=== PATIENT | female | born 1975 | race Two or more races ===

== ENCOUNTER 2022-12-03 10:58 | Outpatient (CLI) | payer OTHER ==
--- NOTE | 2022-12-03 11:49 | SLEEP CARE CONSULTATION ---
Information from patient questionnaire entered by Lenny Gan. I have reviewed and concur with the information entered by Lenny Gan. This document represents the service I personally performed and the decisions made by me, Cammy Maradiaga ARNP. History of Present Illness Service Date and Time: 12/03/2022 1058 Reason for Visit: New patient Chief Complaint: reports: Insomnia, Unrefreshed sleep, Snoring, Excessive daytime sleepiness, Fatigue, Frequent awakenings at night Date of Onset: 6+YRS Usual bedtime: 10-11PM Time it takes to fall asleep: 60MIN Snores at night: Yes Observed to quit breathing while asleep: No Sleeps alone due to snoring: No Number of times waking at night: 4 Reasons for waking at night: reports: Snoring, Pain, Other (PAIN, UNKNOWN ). denies: Choking, Gasping for air Toss, Turn, or Twitch while sleeping: Yes Recalls having dreams: Yes (sometimes) Usually gets out of bed at: 730AM Feels refreshed in the morning: No Morning headache: No Sleepy or fatigued during the day: Yes Ever fallen asleep while driving: No Takes day naps: Yes (maybe on weekends) Dreams during day naps: No Prior sleep studies: No Additional HPI information: I had the pleasure of seeing BEATRIZ LOZOYA today regarding the possibility of her having a sleep disorder. Her current complaints are insomnia, unrefreshed sleep, snoring, excessive daytime sleepiness, fatigue and frequent night awakenings. She has been snoring for a long time and her (who is on a CPAP) has been encouraging her to get a sleep study. She states it takes an hour to fall asleep initially. She states she will wake up 1-2 times in the middle of night and it takes her about 30 minutes or more to go back to sleep. She is not sure what wakes her up most of the time. - Parasomnia Symptoms Ever been unable to move upon waking from sleep: No Walks in sleep: No Talks in sleep: Yes (sometimes, per ) Ever acted out dreams in sleep: No Ever felt weak in the knees when startled or emotional: Yes (has not fallen to ground) Bothered by creepy, crawly, restless sensations in legs: Yes (at night, before bed) Problems with memory or concentration: No Subjective Initial [place] Sleepiness Scale score: 9 (12/02/22) Past Medical History Past Medical History: reports: Arthritis, Anemia, Anxiety, Depression, GERD, Other (Csection 2002) Social History The patient's occupation is a [employer]. Patient is and lives in [place]. Have you smoked in the past 12 months: No Alcohol use: No Caffeine use: Yes Caffeine amount and frequency: 1 DAILY Family History Family history of sleep disordered breathing: Yes Family Hx Sleep Apnea: Mother: Snoring, Father: Sleep apnea - Treated Allergies and Home Medications Known drug allergies: No Drug allergies reviewed: Yes (NKDA) Home medication list reviewed: Yes Allergy and home medication list: Medications: Fluoxetine 20 mg, daily Pantoprazole 40 mg, daily Review of Systems Cardiovascular: denies: high blood pressure Gastrointestinal: reports: heartburn Neurological: denies: headaches Psychiatric: reports: anxiety, depression Ear/Nose/Throat: reports: nasal congestion, sinus problems, wisdom teeth removed. denies: tonsillectomy Musculoskeletal: reports: joint pain, neck pain, back pain Physical Exam Vital signs obtained and entered by: LENNY Singh MA Blood Pressure: 156/100 (LEFT ARM; pt feeling nervous) Cuff size: regular Heart Rate: 97 O2 Saturation: 99 Height: 5 ft Weight: 227 lb 3.2 oz Body Mass Index: 44.4 BMI Classification: Morbidly Obese Neck circumference: 16.25 Nostrils: patent to airflow Mouth and throat: narrow oropharynx Soft palate: long Hard palate: normal Uvula: normal Uvula visualization: 0% Mallampati Class IV Tongue: normal in size Tonsils: small Neck: normal w/o lymphadenopathy or thyromegaly Heart: regular rate and rhythm Lungs: clear bilaterally Impression and Plan 1. Suspected Obstructive Sleep Apnea-Hypopnea Syndrome, as suggested by a history of loud and irregular snoring, frequent awakening during the night, unrefreshed sleep, and excessive daytime sleepiness. Narrow oropharynx and obesity are common predisposing factors for obstructive sleep apnea-hypopnea syndrome. I recommend proceeding to polysomnography to confirm the diagnosis and to assess severity. If the patient has significant sleep disordered breathing, a manual CPAP titration study will also be performed to find the optimal treatment pressure. I informed the patient of what the sleep studies involve and after some discussion, obtained agreement to proceed. The pathophysiology of obstructive sleep apnea-hypopnea syndrome was discussed with the patient and health risks of cardiovascular and cerebrovascular disease if not treated. Risks of drowsy driving discussed in detail and patient advised to avoid long distance driving and to stock puller at the first sign of drowsiness. Patient agreed to plan. * Schedule polysomnography * Avoid long distance driving or driving when feeling sleepy. * Avoid alcohol, sedative and muscle relaxant around bedtime. * Attempt to lose weight. * Review instructions provided by trained office staff on how to prepare for the sleep study. * Return for follow-up after sleep study completed. Counseling Topics: Weight loss health impact Visit Type: In Office Time Spent with Patient (minutes): 30 Provider Statement: I spent 100% of the Face to Face Visit with the patient with greater than 50% spent counseling the patient and coordination of care.
[2022-12-03 11:50] VITALS: BP 156/100
== END 2022-12-03 10:59 | disposition home or self-care (01) ==
LOC: SC 10:58
PROVIDERS: ATTEND Nurse Practitioner Family
DX: R06.83 Snoring (principal); G47.8 Other sleep disorders; G47.10 Hypersomnia, unspecified; R53.83 Other fatigue; F32.A Depression, unspecified; E66.01 Morbid (severe) obesity due to excess calories; Z68.41 Body mass index [BMI] 40.0-44.9, adult
CPT/HCPCS: 99203; 99212

== ENCOUNTER 2023-01-11 19:32 | Outpatient (CLI) | payer OTHER | END 2023-01-11 19:33 | disposition home or self-care (01) | LOC: SC 19:32 | PROVIDERS: ATTEND Nurse Practitioner Family | DX: G47.33 Obstructive sleep apnea (adult) (pediatric) (principal); Z68.41 Body mass index [BMI] 40.0-44.9, adult | CPT/HCPCS: 95810 ==

== ENCOUNTER 2023-02-17 08:25 | Outpatient (CLI) | payer OTHER ==
[2023-02-17 08:55] VITALS: BP 126/82
--- NOTE | 2023-02-17 08:55 | SLEEP CARE CONSULTATION ---
Information from patient questionnaire entered by Hannah Gan. I have reviewed and concur with the information entered by Hannah Gan. This document represents the service I personally performed and the decisions made by , Cammy Maradiaga ARNP. History of Present Illness Service Date and Time: 02/17/2023824 Initial [place] Sleepiness Scale score: 9 (12/02/22) Current [place] Sleepiness Scale score: 10 (02/17/23) Additional HPI information: BEATRIZ LOZOYA returns for follow up and results of the recently performed polysomnography. I explained the pathophysiology behind obstructive sleep apnea. We then spent quite a bit of time discussing different treatment options. For mild obstructive sleep apnea, surgery and oral appliance are alternatives to nasal CPAP therapy but in moderate or severe cases, nasal CPAP is the most effective and reliable treatment. Because apnea is primarily in supine position, then positional management therapy could be effective. Methods discussed such as positioning with pillows to prevent supine sleep. I reviewed the impact of weight changes on sleep apnea and strongly recommended losing weight. After some discussion, the patient opted to go with the nasal CPAP therapy. Nasal autoCPAP set at 4-15 cmH20 will be ordered with rationale explained. A manual titration study will be ordered if unable to find optimal pressure with office adjustments. I explained how CPAP machine works and what to expect when using the machine. Using CPAP every night in order to get used to it was emphasized. Patient advised to put CPAP mask on before getting into bed so as not to fall asleep without CPAP. To assist acclimation to CPAP use, it could also be used for a short time during day while reading or watching TV. The patient was instructed to call the CPAP supplier to discuss any mechanical problem that may occur. If the mask given is uncomfortable or is difficult to keep on through the night even with adjustment, contact the CPAP supplier as many will replace with another mask style if notified before 30 days. If snoring or perceives is not getting enough air or too much air from the machine, notify this office. Patient does not drink alcohol. Patient was cautioned about risks of drowsy driving until sleepiness symptoms resolve. Patient denies drowsy driving. Sleep Study - Results Type of Sleep Study: Polysomnography (COMPLETED 01/11/23) Prior sleep studies: No Polysomnography/Home Sleep Study results: IMPRESSION: The quality of the study is good. The patient had slightly reduced sleep efficiency due to a few awakenings during the night. The sleep architecture was abnormal for sleep fragmentation and reduced amount of time spent in slow wave sleep (N3). Respiratory monitoring showed moderate obstructive sleep apnea-hypopnea (AHI = 15.6) associated with frequent arousals, oxyhemoglobin desaturation and mild hypoxia (gladis oxygen saturation of 84%). The respiratory events occurred mainly during supine sleep (supine AHI = 25.1; non-supine = 12.72). Snore was moderate to loud in intensity. There was no significant periodic leg movement of sleep. Cardiac rhythm was normal sinus rhythm without significant arrhythmia. No abnormal behavior (parasomnia) observed during the night. Allergies and Home Medications Known drug allergies: No Drug allergies reviewed: Yes Home medication list reviewed: Yes (no changes) Allergy and home medication list: Allergies No Known Drug Allergies Allergy (Verified 02/16/23 09:19) Review of Systems Review of systems same as previous: Yes Physical Exam Vital signs obtained and entered by: HANNAH Singh MA Blood Pressure: 126/82 (LEFT ARM) Cuff size: regular Heart Rate: 89 O2 Saturation: 98 Height: 5 ft Weight: 226 lb 9.6 oz Body Mass Index: 44.2 BMI Classification: Morbidly Obese Impression and Plan r 1. Obstructive Sleep Apnea-Hypopnea Syndrome, moderate, with lowest oxygen saturation of 84%. Obviously this is the cause of the patients symptoms of unrefreshed sleep, and excessive daytime sleepiness. Positive pressure therapy could benefit anxiety, depression and gastric reflux. As mentioned above, the patient will be started on nasal autoCPAP therapy with pressure set at 4-15 cmH2 O. Compliance guidelines also reviewed. A copy of compliance guidelines will be given for reference at check out. Because the apnea is more severe supine, I instructed to avoid sleeping supine using pillow positioning until able to start CPAP use. 2. Hypoxemia, mild, with a gladis oxygen saturation of 84% and 0.2 minutes spent under 90%. Her baseline oxygen saturation was normal with an average oxygen saturation of 95%. * Nasal auto CPAP therapy, pressure at 4-15 cm H2O. * Attempt to lose weight. * Avoid alcohol consumption near bedtime. * Avoid supine sleep until using CPAP. * The patient is again cautioned about driving until sleepiness completely resolves. * Return one month after CPAP obtained. I will assess response to therapy and compliance at that time. Counseling Topics: Weight loss health impact Visit Type: In Office Time Spent with Patient (minutes): 12 Provider Statement: I spent 100% of the Face to Face Visit with the patient with greater than 50% spent counseling the patient and coordination of care.
== END 2023-02-17 08:26 | disposition home or self-care (01) ==
LOC: SC 08:25
PROVIDERS: ATTEND Nurse Practitioner Family
DX: G47.33 Obstructive sleep apnea (adult) (pediatric) (principal); R09.02 Hypoxemia; E66.01 Morbid (severe) obesity due to excess calories; Z68.41 Body mass index [BMI] 40.0-44.9, adult
CPT/HCPCS: 99212

== ENCOUNTER 2023-05-18 12:46 | Outpatient (CLI) | payer OTHER ==
--- NOTE | 2023-05-18 13:17 | Sleep Patient Instructions ---
Sleep Center Visit Summary - Patient Visit Information Reason for Visit: First Compliance visit for CPAP therapy - Patient Instructions Additional Instructions: You were here for follow up of CPAP therapy. You will be continued on CPAP therapy with pressure at 7-11 cmH2O. Please let us know if the pressure change is uncomfortable and we can make further adjustments of the pressure. We have also increased the ramp starting pressure to 5 cmH2O for comfort. You should follow up with sleep care in 1-2 months. You may contact us sooner for any questions or concerns. - Clinic Information Contact: [facility] [address] [place] [id number] [email or web address] T: [phone]
--- NOTE | 2023-05-18 13:23 | SLEEP CARE CONSULTATION ---
Information from patient questionnaire entered by Lenny Gan. I have reviewed and concur with the information entered by Lenny Gan. This document represents the service I personally performed and the decisions made by , Cammy Maradiaga ARNP. History of Present Illness Service Date and Time: 05/18/2023 1246 Previous diagnosis: Moderate, Obstructive Sleep Apnea-Hypopnea Syndrome AHI: 15.6 (in 12/2022) Reason for follow up: first compliance Equipment type: CPAP (RESMED 11, s/u 02/2023) Equipment obtained from: Other ([facility], got initial supplies) Mask style: Nasal Mask brand: Serv[employer] CloudOpt Backup mask available: No (will keep old mask when replaced) Last cushion change: 1.5 weeks Prior sleep studies: No Type of Sleep Study: Polysomnography (COMPLETED 01/11/23) HPI additional information: BEATRIZ LOZOYA was diagnosed to have moderate, AHI 15.6, obstructive sleep apnea-hypopnea syndrome and returned today for CPAP therapy first compliance follow-up. Sleep Study - Results Type of Sleep Study: Polysomnography (COMPLETED 01/11/23) Prior sleep studies: No CPAP Compliance Data - Data Reviewed with Patient Average duration of nightly device use: 7 hours 33 minutes Compliance rate %: 100 (30/30 days used) Current pressure setting (cmH2O): 4-15 (median 6.7, avg 9.5, max 11) Average residual AHI: 0.3 Central apnea: 0 Obstructive apnea: 0.1 Hypopnea: 0.1 Average large leak: 2.8 L/min Subjective Patient concerns: reports: air blowing in eyes, condensation in mask/hose. denies: aerophagia, mask discomfort, mask leak noise, nasal congestion, dry mouth, nose, throat, epistaxis Observed to snore while using device: No Current pressure setting perceived as: comfortable On therapy, patient: reports: sleeping better, awakening more refreshed, being more awake and alert during the day, more rested overall. denies: drowsiness while driving Initial [place] Sleepiness Scale score: 9 (12/02/22) Current [place] Sleepiness Scale score: 9 (122/70) Allergies and Home Medications Known drug allergies: No Drug allergies reviewed: Yes Home medication list reviewed: Yes (no changes) Allergy and home medication list: Allergies No Known Drug Allergies Allergy (Verified 05/16/23 10:54) Review of Systems Review of systems same as previous: Yes (no changes) Physical Exam Vital signs obtained and entered by: LENNY Singh MA Blood Pressure: 122/70 (LEFT ARM) Cuff size: regular Heart Rate: 102 O2 Saturation: 98 Height: 5 ft Weight: 230 lb 3.2 oz Body Mass Index: 44.9 BMI Classification: Morbidly Obese Impression and Plan 1. Obstructive Sleep Apnea-Hypopnea Syndrome, moderate, with good treatment compliance and good4 apnea control. On CPAP therapy, the patient has better sleep quality and is more rested overall. She states the pressure feels a little low at first and she wishes there was a bit more but otherwise the pressure is comfortable. I will increase her ramp starting pressure to 5 cmH2O for patient comfort. The patients pressure will be changed to autoCPAP 7-10 cmH20 to reflect pressures being used. Patient advised to contact me if pressure change is uncomfortable so that it can be adjusted. Goals for apnea control discussed. Patient's apnea severity and rationale for treatment to reduce apnea, improve sleep quality and reduce cardiovascular and cerebrovascular events was reviewed. I also reviewed the benefit of consistent device use of CPAP for gastric reflux, depression and anxiety. 2. Obesity, unspecified. Currently patients BMI is 44.9. Obesity increases the risk of apnea, CPAP pressure requirements and overall health risks especially cardiovascular and diabetes. Thus patient is advised to lose weight. * Increase ramp starting pressure to 5 cmH2O * Change auto CPAP pressure to 7-11 cmH2O * Notify me if snoring with mask or feeling that the pressure is too much or too little * Attempt to lose weight * Call this office if any problems using CPAP * Return for follow up in 1-2 months, or sooner if concerns arise Counseling Topics: Spare mask, Weight loss health impact Visit Type: In Office Time Spent with Patient (minutes): 24 Provider Statement: I spent 100% of the Face to Face Visit with the patient with greater than 50% spent counseling the patient and coordination of care.
[2023-05-18 13:27] VITALS: BP 122/70
== END 2023-05-18 12:47 | disposition home or self-care (01) ==
LOC: SC 12:46
PROVIDERS: ATTEND Nurse Practitioner Family
DX: G47.33 Obstructive sleep apnea (adult) (pediatric) (principal); E66.01 Morbid (severe) obesity due to excess calories; Z68.41 Body mass index [BMI] 40.0-44.9, adult
CPT/HCPCS: 99212; 99213

== ENCOUNTER 2023-07-01 09:05 | Outpatient (CLI) | payer OTHER ==
--- NOTE | 2023-07-01 08:59 | SLEEP CARE CONSULTATION ---
Information from patient questionnaire entered by Lenny Gan. I have reviewed and concur with the information entered by Lenny Gan. This document represents the service I personally performed and the decisions made by , Cammy Maradiaga ARNP. History of Present Illness Service Date and Time: 07/01/2023 0900 Previous diagnosis: Moderate, Obstructive Sleep Apnea-Hypopnea Syndrome AHI: 15.6 (in 2022) Reason for follow up: one month (F/U) Equipment type: CPAP (RESMED Airsense 11, s/u 02/2023) Equipment obtained from: Other ([facility], getting supplies) Mask style: Nasal Mask brand: Resmed (N20) Backup mask available: Yes (old mask) Last cushion change: last week Prior sleep studies: No Type of Sleep Study: Polysomnography (COMPLETED 01/11/23) HPI additional information: BEATRIZ LOZOYA was diagnosed to have moderate, AHI 15.6, obstructive sleep apnea-hypopnea syndrome and returns via video telehealth visit today for CPAP therapy one month follow-up. Sleep Study - Results Type of Sleep Study: Polysomnography (COMPLETED 01/11/23) Prior sleep studies: No CPAP Compliance Data - Data Reviewed with Patient Average duration of nightly device use: 7 HRS 17 MIN Compliance rate %: 97 (05/24/23-06/22/23; 30/30 days used) Current pressure setting (cmH2O): 7-10 Average residual AHI: 0.2 Central apnea: 0 Obstructive apnea: 0.1 Hypopnea: 0 Average large leak: 1.1 L/min Subjective Patient concerns: denies: aerophagia, mask discomfort, air blowing in eyes, mask leak noise, condensation in mask/hose, nasal congestion, dry mouth, nose, throat, epistaxis Observed to snore while using device: No Current pressure setting perceived as: comfortable On therapy, patient: reports: sleeping better, awakening more refreshed, being more awake and alert during the day, more rested overall. denies: drowsiness while driving Initial [place] Sleepiness Scale score: 9 (12/02/22) Current [place] Sleepiness Scale score: 7 (07/01/23) Allergies and Home Medications Known drug allergies: No Drug allergies reviewed: Yes Home medication list reviewed: Yes (no changes) Allergy and home medication list: Allergies No Known Drug Allergies Allergy (Verified 06/30/23 15:18) Review of Systems Review of systems same as previous: Yes (no changes) Physical Exam Vital signs obtained and entered by: LENNY Singh MA Height: 5 ft (PER PT) Weight: 225 lb (PER PT) Weight change since last visit: 5 lb loss Body Mass Index: 43.9 BMI Classification: Morbidly Obese Impression and Plan 1. Obstructive Sleep Apnea-Hypopnea Syndrome, moderate, with good treatment compliance and good apnea control. On CPAP therapy, the patient has better sleep quality and is more rested overall. She states she still gets up a few weeks from the mask and her eyes but this is not all the time. She is going to try a sleeping mask to protect her eyes. She is also going to change the nasal cushion as often as recommended to get a good seal. Patient has significant improvement of their sleep apnea and is satisfied with current CPAP therapy. Patient's apnea severity and rationale for treatment to reduce apnea, improve sleep quality and reduce cardiovascular and cerebrovascular events was reviewed. I also reviewed the benefit of consistent device use of CPAP for gastric reflux, depression and anxiety. 2. Obesity, unspecified. Currently patients BMI is 43.9. She has lost weight. Obesity increases the risk of apnea, CPAP pressure requirements and overall health risks especially cardiovascular and diabetes. Thus patient is advised to continue to try to lose weight. * Continue auto CPAP pressure at 7-11 cmH2O * Notify me if snoring with mask or feeling that the pressure is too much or too little * Continue to try to lose weight * Call this office if any problems using CPAP * Return for follow up in 3 months, or sooner if concerns arise Counseling Topics: Spare mask, Weight loss health impact Visit Type: Telehealth Video Video Type: Doximity Patient Location: Driving Location of Provider: Office Patient agrees and consents to this telehealth visit type: Yes Patient agrees to have their insurance billed: Yes Time Spent with Patient (minutes): 11 Provider Statement: I spent 100% of the Telehealth Video Call with the patient with greater than 50% spent counseling the patient and coordination of care.
== END 2023-07-01 09:06 | disposition home or self-care (01) ==
LOC: SC 09:05
PROVIDERS: ATTEND Nurse Practitioner Family
DX: G47.33 Obstructive sleep apnea (adult) (pediatric) (principal); E66.01 Morbid (severe) obesity due to excess calories; Z68.41 Body mass index [BMI] 40.0-44.9, adult

== ENCOUNTER 2023-10-21 14:57 | Outpatient (CLI) | payer OTHER ==
--- NOTE | 2023-10-21 15:06 | SLEEP CARE CONSULTATION ---
Information from patient questionnaire entered by Lenny Gan. I have reviewed and concur with the information entered by Lenny Gan. This document represents the service I personally performed and the decisions made by , Cammy Maradiaga ARNP. History of Present Illness Service Date and Time: 10/21/2023 1520 Previous diagnosis: Moderate, Obstructive Sleep Apnea-Hypopnea Syndrome AHI: 15.6 (in 2022) Reason for follow up: three month (F/U) Equipment type: CPAP (RESMED Airsense 11, s/u 02/2023) Equipment obtained from: Other ([facility], getting supplies) Mask style: Nasal Backup mask available: Yes (old mask) Last cushion change: 1 month Prior sleep studies: No Type of Sleep Study: Polysomnography (COMPLETED 01/11/23) HPI additional information: BEATRIZ LOZOYA was diagnosed to have moderate, AHI 15.6, obstructive sleep apnea-hypopnea syndrome and returns via video appointment today for CPAP therapy three month follow-up. Sleep Study - Results Type of Sleep Study: Polysomnography (COMPLETED 01/11/23) Prior sleep studies: No CPAP Compliance Data - Data Reviewed with Patient Average duration of nightly device use: 7 HRS 41 MINS Compliance rate %: 100 (07/22/23/10/19/23; 90/90 days used) Current pressure setting (cmH2O): 7-10 Average residual AHI: 0.2 Central apnea: 0 Obstructive apnea: 0.1 Average large leak: 2.9 L/min Subjective Patient concerns: denies: aerophagia, mask discomfort, air blowing in eyes, mask leak noise, condensation in mask/hose, nasal congestion, dry mouth, nose, throat, epistaxis Observed to snore while using device: No Current pressure setting perceived as: comfortable On therapy, patient: reports: sleeping better, awakening more refreshed, being more awake and alert during the day, more rested overall. denies: drowsiness while driving Initial [place] Sleepiness Scale score: 9 (12/02/22) Current [place] Sleepiness Scale score: 6 (10/21/23) Allergies and Home Medications Known drug allergies: No Drug allergies reviewed: Yes Home medication list reviewed: Yes (no changes) Allergy and home medication list: Allergies No Known Drug Allergies Allergy (Verified 10/20/23 17:06) Review of Systems Review of systems same as previous: Yes (no changes) Physical Exam Vital signs obtained and entered by: LENNY Singh MA Height: 5 ft (PER PT) Weight: 220 lb (PER PT) Body Mass Index: 43.0 BMI Classification: Morbidly Obese Impression and Plan 1. Obstructive Sleep Apnea-Hypopnea Syndrome, moderate, with good treatment compliance and good apnea control. On CPAP therapy, the patient has better sleep quality and is more rested overall. Patient has significant improvement of their sleep apnea and is satisfied with current CPAP therapy. Patient denies problems with oral dryness, nasal congestion, epistaxis, skin irritation or aerophagia. Patient's apnea severity and rationale for treatment to reduce apnea, improve sleep quality and reduce cardiovascular and cerebrovascular events was reviewed. I also reviewed the benefit of consistent device use of CPAP for gastric reflux, depression and anxiety. 2. Obesity, unspecified. Currently patients BMI is 43. Obesity increases the risk of apnea, CPAP pressure requirements and overall health risks especially cardiovascular and diabetes. Thus patient is advised to lose weight. * Continue auto CPAP pressure at 7-10 cmH2O * Notify me if snoring with mask or feeling that the pressure is too much or too little * Attempt to lose weight * Call this office if any problems using CPAP * Return for follow up in 6 months, or sooner if concerns arise Counseling Topics: Spare mask, Weight loss health impact Follow up with Sleep Care in: 6 months Visit Type: Telehealth Video Video Type: [facility] Patient Location: Work Location of Provider: Office Patient agrees and consents to this telehealth visit type: Yes Patient agrees to have their insurance billed: Yes Time Spent with Patient (minutes): 10 Provider Statement: I spent 100% of the Telehealth Video Call with the patient with greater than 50% spent counseling the patient and coordination of care.
== END 2023-10-21 14:58 | disposition home or self-care (01) ==
LOC: SC 14:57
PROVIDERS: ATTEND Nurse Practitioner Family
DX: G47.33 Obstructive sleep apnea (adult) (pediatric) (principal); E66.01 Morbid (severe) obesity due to excess calories; Z68.41 Body mass index [BMI] 40.0-44.9, adult

== ENCOUNTER 2024-07-13 09:17 | Outpatient (CLI) | payer OTHER ==
--- NOTE | 2024-07-13 08:52 | SLEEP CARE CONSULTATION ---
Information from patient questionnaire entered by Neeta Carlos. I have reviewed and concur with the information entered by Neeta Carlos. This document represents the service I personally performed and the decisions made by , Cammy Maradiaga ARNP. History of Present Illness Service Date and Time: 07/13/2024 0840 Previous diagnosis: Moderate, Obstructive Sleep Apnea-Hypopnea Syndrome AHI: 15.6 (in 2022) Reason for follow up: other ([facility]) Equipment type: CPAP (RESMED Airsense 11, s/u 02/2023) Equipment obtained from: Other ([facility], getting supplies) Mask style: Nasal Backup mask available: Yes (old mask) Last cushion change: two weeks Prior sleep studies: No Type of Sleep Study: Polysomnography (COMPLETED 01/11/23) HPI additional information: BEATRIZ LOZOYA was diagnosed to have moderate, AHI 15.6, obstructive sleep apnea-hypopnea syndrome and returns via video appointment today for CPAP therapy eight month follow-up. Sleep Study - Results Type of Sleep Study: Polysomnography (COMPLETED 01/11/23) Prior sleep studies: No CPAP Compliance Data - Data Reviewed with Patient Average duration of nightly device use: 7 h 42 min Compliance rate %: 100 (180/180 days used) Current pressure setting (cmH2O): 7-10 Average residual AHI: 0.2 Central apnea: 0 Obstructive apnea: 0.1 Hypopnea: 0 Average large leak: 0.2 L/min Subjective Patient concerns: reports: condensation in mask/hose (sometimes), nasal congestion (normal, has nasal drip during day). denies: aerophagia, mask discomfort, air blowing in eyes, mask leak noise, dry mouth, nose, throat, epistaxis Observed to snore while using device: No Current pressure setting perceived as: comfortable On therapy, patient: reports: sleeping better, awakening more refreshed, being more awake and alert during the day, more rested overall. denies: drowsiness while driving Initial [place] Sleepiness Scale score: 9 (12/02/22) Current [place] Sleepiness Scale score: 6 (07/13/24) Allergies and Home Medications Known drug allergies: No Drug allergies reviewed: Yes Home medication list reviewed: Yes (no changes) Allergy and home medication list: Allergies No Known Drug Allergies Allergy Review of Systems Review of systems same as previous: Yes (no changes) Physical Exam Vital signs obtained and entered by: Cammy Soria NP Height: 5 ft (PER PT) Weight: 225 lb (Per pt) Body Mass Index: 43.9 BMI Classification: Morbidly Obese Impression and Plan 1. Obstructive Sleep Apnea-Hypopnea Syndrome, moderate, with good treatment compliance and good apnea control. On CPAP therapy, the patient has better sleep quality and is more rested overall. Patient has significant improvement of her sleep apnea and is satisfied with current CPAP therapy. She is comfortable with the current pressure. She intends to continue with CPAP therapy long-term. We will put her out for a yearly visit at this time but she may return should she develop any concerns. Patient's apnea severity and rationale for treatment to reduce apnea, improve sleep quality and reduce cardiovascular and cerebrovascular events was reviewed. I also reviewed the benefit of consistent device use of CPAP for gastric reflux, depression/anxiety. 2. Obesity, unspecified. Currently patients BMI is 43.9. Obesity increases the risk of apnea, CPAP pressure requirements and overall health risks especially cardiovascular and diabetes. Thus patient is advised to try to lose weight. * Continue auto CPAP pressure at 7-10 cmH2O * Notify me if snoring with mask or feeling that the pressure is too much or too little * Attempt to lose weight * Call this office if any problems using CPAP * Return for follow up in 12 months, or sooner if concerns arise Counseling Topics: Spare mask, Weight loss health impact Follow up with Sleep Care in: 1 year Visit [facility] Patient Location: Work Location of Provider: Office Patient agrees and consents to this telehealth visit type: Yes Patient agrees to have their insurance billed: Yes Time Spent with Patient (minutes): 13 Provider Statement: I spent 100% of the Telehealth Video Call with the patient with greater than 50% spent counseling the patient and coordination of care.
== END 2024-07-13 09:18 | disposition home or self-care (01) ==
LOC: SC 09:17
PROVIDERS: ATTEND Nurse Practitioner Family
DX: G47.33 Obstructive sleep apnea (adult) (pediatric) (principal); E66.01 Morbid (severe) obesity due to excess calories; Z68.41 Body mass index [BMI] 40.0-44.9, adult